=== PATIENT | male | born 1965 | race Caucasian/White ===

== ENCOUNTER 2017-03-22 11:02 | Emergency (ER) | payer BC ==
[~2017-03-22] VITALS: Ht 193 cm; Wt 118.0 kg
[~2017-03-22 11:02] MED LIST: CETI10 PO; EPIP0.3I IM; GLUCTAB OR; PRED20 PO; RANI300T PO
[2017-03-22 11:10] VITALS: BP 121/85; PULSE 118; RESP 17; O2SAT 98
[2017-03-22 11:16] VITALS: BP 121/85; TEMP 98.4
[2017-03-22] MEDS ORDERED: SODIUM CHLOR 0.9% 1000 ML INJ 1,000 ML IV SCH (11:18)
[2017-03-22] MEDS ORDERED: SODIUM CHLORIDE 0.9% FLUSH 10 ML FLUSH IV FLUSH PRN (11:30)
--- NOTE | 2017-03-22 11:30 | PD ---
HPI Chief Complaint: GI Complaint Time Seen by Provider: 11:20 Travel History International Travel<30 days: No Contact w/Intl Traveler<30days: No History of Present Illness HPI 51-year-old male with history of DM, HTN, tachycardia presents to the ED for evaluation less than 24 hour history of sudden onset nausea and vomiting. Patient states he ate the same dinner as his and kids. He states around 11 PM he began to have multiple episodes of watery diarrhea and nonbloody, nonbilious vomiting. He endorses diaphoreses and abdominal cramping, relieved with defecation. He estimates 10-11 episodes of vomiting and diarrhea. He states that he took 2 doses of Imodium today, last episode of diarrhea approximately 10 AM. On presentation the patient denies fever, chills, cold or flu symptoms, headache, chest pain, abdominal pain, dysuria, back pain, weakness of the extremities. He endorses chronic dry cough which he attributes to lisinopril. EMS administered 4 mg of Zofran and 500 mL of normal saline en route. Patient reports improvement of his symptoms on arrival. He states that he is [id number]-dpirztgsg diabetic and follows with Dr. Markham. He was just referred to a stunt man for his tachycardia, has never had a cardiac evaluation, currently taking metoprolol. PFSH Past Medical History Diabetes: Yes Diminished Hearing: No Past Surgical History Abdominal Surgery: Yes (HERNIA REPAIR) Appendectomy: Yes Cholecystectomy: Yes Other Surgery: Yes (GALLBLADDER) Social History Alcohol Use: Yes (OCC BEER) Tobacco Use: No (SMOKELESS) Substance Use: No Allergies-Medications (Allergen,Severity, Reaction): Coded Allergies: No Known Allergies (Unverified , 05/28/13) Reported Meds & Prescriptions Reported Meds & Active Scripts Active Zofran Odt (Ondansetron Odt) 4 Mg Tab 4 Mg SL Q8HR PRN Zantac (Ranitidine HCl) 300 Mg Tab 300 Mg PO HS Zyrtec 10 Mg Tab (Cetirizine HCl) 10 Mg Tab 10 Mg PO DAILY Epipen (Epinephrine HCl) 0.3 Mg Inj 0.3 Mg IM DIRECTED GIVE IM IN THIGH, MAY REPEAT IF NEEDED Deltasone (Prednisone) 20 Mg Tab 1 Tab PO BID Reported Glucophage XR 24 HR (Metformin HCl) 500 Mg Tab 500 Mg OR BID Review of Systems Except as stated in HPI: all other systems reviewed are Neg Physical Exam Narrative GENERAL: Well-nourished, well-developed nontoxic appearing white male in no acute distress. SKIN: Focused skin assessment warm/dry. Well-healed scar on the right anterior tibia. No signs of infection. HEAD: Normocephalic. EYES: No scleral icterus. No injection or drainage. NECK: Supple, trachea midline. No JVD or lymphadenopathy. CARDIOVASCULAR: Regular rate and rhythm without murmurs, gallops, or rubs. Tachycardic. RESPIRATORY: Breath sounds clear and equal bilaterally. No accessory muscle use. GASTROINTESTINAL: Abdomen soft, non-tender, nondistended. No palpable masses. Active bowel sounds. MUSCULOSKELETAL: No cyanosis, or edema. The patient is ambulatory and moves extremities spontaneously. BACK: Nontender without obvious deformity. No CVA tenderness. Data Data Last Documented VS Vital Signs Date Time Temp Pulse Resp B/P Pulse Ox O2 Delivery O2 Flow Rate FiO2 03/22/17 11:16 98.4 121/85 03/22/17 11:10 118 17 98 Room Air Orders Complete Blood Count With Diff (03/22/17 11:18) Comprehensive Metabolic Panel (03/22/17 11:18) Lipase (03/22/17 11:18) Lactic Acid (03/22/17 11:18) Urinalysis - C+S If Indicated (03/22/17 11:18) Iv Access Insert/Monitor (03/22/17 11:18) Ecg Monitoring (03/22/17 11:18) Oximetry (03/22/17 11:18) Sodium Chlor 0.9% 1000 Ml Inj (Ns 1000 M (03/22/17 11:18) Sodium Chloride 0.9% Flush (Ns Flush) (03/22/17 11:30) Electrocardiogram (03/22/17 11:18) Labs Laboratory Tests Test 03/22/17 03/22/17 11:30 12:20 White Blood Count 11.0 TH/MM3 Red Blood Count 5.48 MIL/MM3 Hemoglobin 16.6 GM/DL Hematocrit 48.3 % Mean Corpuscular Volume 88.2 FL Mean Corpuscular Hemoglobin 30.2 PG Mean Corpuscular Hemoglobin 34.3 % Concent Red Cell Distribution Width 12.8 % Platelet Count 260 TH/MM3 Mean Platelet Volume 10.4 FL Neutrophils (%) (Auto) 88.8 % Lymphocytes (%) (Auto) 5.3 % Monocytes (%) (Auto) 5.1 % Eosinophils (%) (Auto) 0.7 % Basophils (%) (Auto) 0.1 % Neutrophils # (Auto) 9.8 TH/MM3 Lymphocytes # (Auto) 0.6 TH/MM3 Monocytes # (Auto) 0.6 TH/MM3 Eosinophils # (Auto) 0.1 TH/MM3 Basophils # (Auto) 0.0 TH/MM3 CBC Comment DIFF FINAL Differential Comment Sodium Level 134 MEQ/L Potassium Level 4.7 MEQ/L Chloride Level 103 MEQ/L Carbon Dioxide Level 23.5 MEQ/L Anion Gap 8 MEQ/L Blood Urea Nitrogen 17 MG/DL Creatinine 1.26 MG/DL Estimat Glomerular Filtration 61 ML/MIN Rate Random Glucose 345 MG/DL Lactic Acid Level 1.0 mmol/L Calcium Level 8.8 MG/DL Total Bilirubin 0.8 MG/DL Aspartate Amino Transf 14 U/L (AST/SGOT) Alanine Aminotransferase 35 U/L (ALT/SGPT) Alkaline Phosphatase 67 U/L Total Protein 7.2 GM/DL Albumin 3.5 GM/DL Lipase 89 U/L Urine Color YELLOW Urine Turbidity CLEAR Urine pH 5.0 Urine Specific [place] 1.031 Urine Protein TRACE mg/dL Urine Glucose (UA) 1000 mg/dL Urine Ketones 10 mg/dL Urine Occult Blood NEG Urine Nitrite NEG Urine Bilirubin NEG Urine Urobilinogen LESS THAN 2.0 MG/DL Urine Leukocyte Esterase NEG Urine RBC LESS THAN 1 /hpf Urine WBC 2 /hpf Urine Hyaline Casts 7 /lpf Urine Mucus FEW /lpf Microscopic Urinalysis Comment CULT NOT INDICATED MDM Medical Decision Making Medical Screen Exam Complete: Yes Emergency Medical Condition: Yes Interpretation(s) EKG: rate 109, sinus rhythm. MS interval 135, QRS 93, QTC 400 ms. Normal axis. No ST elevations or depressions. Reviewed by Dr. Arthur. Differential Diagnosis Gastroenteritis versus pancreatitis versus hyperglycemia versus viral syndrome versus other Narrative Course 51-year-old male with history of DM, HTN, tachycardia presents to the ED for evaluation less than 24 hour history of sudden onset nausea and vomiting. Patient states he ate the same dinner as his and kids. He states around 11 PM he began to have multiple episodes of watery diarrhea and nonbloody, nonbilious vomiting. He endorses diaphoreses and abdominal cramping, relieved with defecation. He estimates 10-11 episodes of vomiting and diarrhea. He states that he took 2 doses of Imodium today, last episode of diarrhea approximately 10 AM. On presentation the patient denies fever, chills, cold or flu symptoms, headache, chest pain, abdominal pain, dysuria, back pain, weakness of the extremities. EMS administered 4 mg of Zofran and 500 mL of normal saline en route. Patient reports improvement of his symptoms on arrival. PCP Dr. Markham. He was just referred to a stunt man for his tachycardia, has never had a cardiac evaluation, currently taking metoprolol. Vitals reviewed. HR 120 on arrival. Physical exam reveals a nontoxic appearing white male in no acute distress. Abdominal exam is reassuring. Patient endorses SxH of cholecystectomy and appendectomy. She was placed on continuous monitoring. IV was established. CBC: WBC 11.0, HGB 16.6 CMP: unremarkable. Glucose: 345 Lipase: 89 Lactic: 1.0 UA: No culture indicated Tachycardia improved on recheck. This is gastroenteritis. Patient was provided a few doses of Zofran. He is instructed to hydrate, eat a bland diet for the next few days, gradually reintroduce new foods, monitor his blood sugars and report to his doctor at follow-up, return to the ED for worsening symptoms. He indicated understanding of instructions and is agreeable with the care plan. The patient is stable and discharged home. Diagnosis Primary Impression: Gastroenteritis Referrals: Fortunato Markham DO Patient Instructions: Diet for Stomach Ulcers and Gastritis (ED), Gastroenteritis (ED), General Instructions Additional Instructions: Rest, hydrate. Sports drinks, water, clear broth are all appropriate to rehydrate. Eat a clear liquid diet and gradually reintroduce foods. Considered a BRAT diet for the next few days. Take Zofran as needed for further episodes of nausea or vomiting. Monitor and note your blood sugars for your next doctors appointment. Resume at home prescription medications. Follow-up with Dr. Markham as discussed. Return to the ED for any urgent or emergent medical condition. Med/Other Pt SpecificInfo: Prescription(s) given Scripts Ondansetron Odt (Zofran Odt)4 Mg Tab4 Mg SL Q8HR PRN (Nausea/Vomiting) #6 TAB Ref 0 Prov:Arthur,[place] Z. MD 03/22/17 Disposition: 01 DISCHARGE HOME Condition: Stable Yary Jarrett Mar 22, 2017 11:30
[2017-03-22 12:07] LABS: AUTOMATED NEUTROPHIL # 9.8 TH/MM3 (1.8-7.7); BASOPHIL % 0.1 % (0.0-2.0); EOSINOPHIL # 0.1 TH/MM3 (0-0.4); EOSINOPHIL % 0.7 % (0.0-4.0); HEMATOCRIT 48.3 % (39.0-51.0); HEMO FLAGS DIFF FINAL; LYMPH % 5.3 % (9.0-44.0); LYMPHOCYTE # 0.6 TH/MM3 (1.0-4.8); MEAN CELL VOLUME 88.2 FL (80.0-100.0); MEAN CORPUSCULAR HEMOGLOBIN 30.2 PG (27.0-34.0); MEAN CORPUSCULAR HGB CONC 34.3 % (32.0-36.0); MONO % 5.1 % (0.0-8.0); NEUT % 88.8 % (16.0-70.0); PLATELET COUNT 260 TH/MM3 (150-450); RED BLOOD COUNT 5.48 MIL/MM3 (4.50-5.90); RED CELL DISTRIBUTION WIDTH 12.8 % (11.6-17.2)
[2017-03-22 12:22] LABS: ALT (GPT) 35 U/L (12-78); ANION GAP 8 MEQ/L (5-15); AST (GOT) 14 U/L (15-37); BICARBONATE 23.5 MEQ/L (21.0-32.0); BLOOD UREA NITROGEN 17 MG/DL (7-18); CHLORIDE 103 MEQ/L (98-107); GLOMERULAR FILTRATION RATE 61 ML/MIN (>89); POTASSIUM 4.7 MEQ/L (3.5-5.1); SODIUM (NA) 134 MEQ/L (136-145)
[2017-03-22 12:24] LABS: ALKALINE PHOSPHATASE 67 U/L (45-117); TOTAL BILIRUBIN ADULT 0.8 MG/DL (0.2-1.0)
[2017-03-22 12:50] LABS: BLOOD, URINE NEG (NEG); COMMENT (UR) CULT NOT INDICATED; CULTURE IF INDICATED CULT NOT INDICATED; GLUCOSE,URINE 1000 mg/dL (NEG); HYALINE CAST, URINE 7 /lpf (RARE); KETONE, URINE 10 mg/dL (NEG); MUCUS URINE FEW /lpf (OCC); NITRITE,URINE NEG (NEG); URINE COLOR YELLOW (YELLW/STRAW)
[2017-03-22] MEDS ORDERED: ZOFR4TAB3 SL (13:07)
[2017-03-22 13:39] VITALS: BP 113/78
--- NOTE | 2017-03-23 19:31 | EKG ---
Date Performed: 03/22/2017 Time Performed: 11:46:02 PTAGE: 51 years EKG: SINUS TACHYCARDIA ABNORMAL RHYTHM ECG NO PREVIOUS TRACING DOCTOR: Brigitte Quiñonez Interpretating Date/Time 03/23/2017 19:30:52
== END 2017-03-22 13:35 | disposition home or self-care (01) ==
LOC: NEPC 11:02
DX: K52.9 Noninfective gastroenteritis and colitis, unspecified (principal); R00.0 Tachycardia, unspecified
CPT/HCPCS: 80053; 81001; 83605; 83690; 85025; 93005; 96360; 99284; J7030

== ENCOUNTER 2018-03-08 13:57 | Emergency (ER) | payer BC, OTHER ==
[~2018-03-08] VITALS: Ht 177.8 cm; Wt 117.0 kg
[~2018-03-08 13:57] MED LIST changes: +ZOFR4TAB3 SL
[2018-03-08 14:00] VITALS: BP 137/87; PULSE 121; RESP 21; TEMP 97.6
[2018-03-08] MEDS ORDERED: SODIUM CHLOR 0.9% 1000 ML INJ 1,000 ML IV ONE ×2 (14:03→15:15)
[2018-03-08] MEDS ORDERED: SODIUM CHLORIDE 0.9% FLUSH 10 ML FLUSH IVF PRN (14:15)
--- NOTE | 2018-03-08 14:17 | PD ---
HPI Chief Complaint: General Weakness Time Seen by Provider: 14:03 Travel History International Travel<30 days: No Contact w/Intl Traveler<30days: No Traveled to known affect area: No History of Present Illness HPI The patient is a 52-year-old male who presents to the emergency department via EMS for nausea, vomiting, lightheadedness, and dizziness. The patient states he became symptomatic earlier today, was lying on the couch when he suddenly became nauseated. The patient went to the bathroom and had several episodes of vomiting. The patient then went back to the couch and lay down, however, have multiple episodes of repetitive nausea and vomiting. The patient then became lightheaded and dizzy. The patient denies any diarrhea. He did complain of some mild chest tightness, but denies any actual chest pain. The patient does have a history of similar symptoms 1 year ago and was diagnosed with SVT. Patient denies any known history of coronary artery disease. The patient does state when he awakened initially he was diaphoretic and covered in sweat. He denies any fever. The patient does have a history of diabetes, the patient's blood sugar is 118 prior to arrival per EMS. The patient did recently start Victoza and they have been increasing his medication dose, he thinks his symptoms may be secondary to the new medication. The patient's primary physician is Dr. Fortunato Markham. EMS states and initially arrived the patient's blood pressure was in the 80s sitting upright, improved to 100 lying supine. They did start IV fluids prior to arrival. The patient does state his symptoms have somewhat improved and his cognitive state is much clear after the IV fluids. PFSH Past Medical History Heart Rhythm Problems: Yes Cardiovascular Problems: Yes Diabetes: Yes Patient Takes Glucophage: No Diminished Hearing: No Past Surgical History Abdominal Surgery: Yes (HERNIA REPAIR) Appendectomy: Yes Cholecystectomy: Yes Other Surgery: Yes (GALLBLADDER) Social History Alcohol Use: No Tobacco Use: No (SMOKELESS) Substance Use: No Allergies-Medications (Allergen,Severity, Reaction): Coded Allergies: No Known Allergies (Unverified , 05/28/13) Reported Meds & Prescriptions Reported Meds & Active Scripts Active Reported Victoza Inj (Liraglutide Inj) 18 Mg/3 Ml Pen 0.6 Mg SQ DAILY Gabapentin 100 Mg Cap 100 Mg PO TID Metoprolol Tartrate 25 Mg Tab 25 Mg PO DAILY Simvastatin 10 Mg Tab 10 Mg PO DAILY Glipizide 10 Mg Tab 10 Mg PO DAILY Take 30 minutes before a meal Metformin (Metformin HCl) 1,000 Mg Tab 1,000 Mg PO DAILY With a meal Review of Systems Except as stated in HPI: all other systems reviewed are Neg General / Constitutional: No: Fever HENT: Positive: Lightheadedness, No: Headaches Cardiovascular: Positive: Chest Pain or Discomfort (Tightness), Tachycardia ( History of SVT), No: Palpitations, Irregular Rhythm Respiratory: No: Shortness of Breath Gastrointestinal: Positive: Nausea, Vomiting, No: Diarrhea, Abdominal Pain Musculoskeletal: Positive: Weakness Neurologic: Positive: Weakness, Dizziness Physical Exam Narrative GENERAL: Awake, alert, pleasant 52-year-old male who appears his stated age and is in no acute respiratory distress. SKIN: Focused skin assessment warm/dry. No diaphoresis initially noted. HEAD: Atraumatic. Normocephalic. EYES: Pupils equal and round. No scleral icterus. No injection or drainage. ENT: No nasal bleeding or discharge. Mucous membranes pink and moist. NECK: Trachea midline. No JVD. CARDIOVASCULAR: Regular, tachycardic with a heart rate of 120. RESPIRATORY: No accessory muscle use. Clear to auscultation. Breath sounds equal bilaterally. GASTROINTESTINAL: Abdomen soft, minimal epigastric tenderness. No guarding or rigidity. MUSCULOSKELETAL: No obvious deformities. No clubbing. No cyanosis. No edema. NEUROLOGICAL: Awake and alert. No obvious cranial nerve deficits. Motor grossly within normal limits. Normal speech. Nonfocal. Oriented 4. PSYCHIATRIC: Appropriate mood and affect; insight and judgment normal. Data Data Last Documented VS Vital Signs Date Time Temp Pulse Resp B/P (MAP) Pulse Ox O2 Delivery O2 Flow Rate FiO2 03/08/18 14:04 99 Nasal Cannula 2.00 03/08/18 14:00 97.6 121 21 137/87 (104) Orders Orders Complete Blood Count With Diff (03/08/18 14:03) Comprehensive Metabolic Panel (03/08/18 14:03) Magnesium (Mg) (03/08/18 14:03) Ckmb (Isoenzyme) Profile (03/08/18 14:03) Troponin I (03/08/18 14:03) Act Partial Throm Time (Ptt) (03/08/18 14:03) Prothrombin Time / Inr (Pt) (03/08/18 14:03) Chest, Single Ap (03/08/18 14:03) Ecg Monitoring (03/08/18 14:03) Iv Access Insert/Monitor (03/08/18 14:03) Oximetry (03/08/18 14:03) Sodium Chloride 0.9% Flush (Ns Flush) (03/08/18 14:15) Sodium Chlor 0.9% 1000 Ml Inj (Ns 1000 M (03/08/18 14:03) Orthostatic Vital Signs (03/08/18 14:03) Lipase (03/08/18 14:03) CKMB (03/08/18 14:10) CKMB% (03/08/18 14:10) Sodium Chlor 0.9% 1000 Ml Inj (Ns 1000 M (03/08/18 15:15) Basic Metabolic Panel (Bmp) (03/08/18 16:31) Electrocardiogram (03/08/18 14:01) Labs Laboratory Tests Test 03/08/18 14:10 03/08/18 16:45 White Blood Count 15.9 TH/MM3 Red Blood Count 5.53 MIL/MM3 Hemoglobin 16.6 GM/DL Hematocrit 47.9 % Mean Corpuscular Volume 86.6 FL Mean Corpuscular Hemoglobin 29.9 PG Mean Corpuscular Hemoglobin Concent 34.6 % Red Cell Distribution Width 13.2 % Platelet Count 279 TH/MM3 Mean Platelet Volume 9.1 FL Neutrophils (%) (Auto) 86.9 % Lymphocytes (%) (Auto) 5.8 % Monocytes (%) (Auto) 6.0 % Eosinophils (%) (Auto) 0.6 % Basophils (%) (Auto) 0.7 % Neutrophils # (Auto) 13.8 TH/MM3 Lymphocytes # (Auto) 0.9 TH/MM3 Monocytes # (Auto) 1.0 TH/MM3 Eosinophils # (Auto) 0.1 TH/MM3 Basophils # (Auto) 0.1 TH/MM3 CBC Comment AUTO DIFF Differential Comment AUTO DIFF CONFIRMED Platelet Estimate NORMAL Platelet Morphology Comment NORMAL Prothrombin Time 10.4 SEC Prothromb Time International Ratio 1.0 RATIO Activated Partial Thromboplast Time 22.6 SEC Blood Urea Nitrogen 11 MG/DL 11 MG/DL Creatinine 1.60 MG/DL 1.32 MG/DL Random Glucose 208 MG/DL 195 MG/DL Total Protein 8.1 GM/DL Albumin 4.1 GM/DL Calcium Level 9.3 MG/DL 8.1 MG/DL Magnesium Level 1.7 MG/DL Alkaline Phosphatase 73 U/L Aspartate Amino Transf (AST/SGOT) 21 U/L Alanine Aminotransferase (ALT/SGPT) 47 U/L Total Bilirubin 0.8 MG/DL Sodium Level 136 MEQ/L 141 MEQ/L Potassium Level 6.1 MEQ/L 4.5 MEQ/L Chloride Level 104 MEQ/L 109 MEQ/L Carbon Dioxide Level 24.3 MEQ/L 24.2 MEQ/L Anion Gap 8 MEQ/L 8 MEQ/L Estimat Glomerular Filtration Rate 46 ML/MIN 57 ML/MIN Total Creatine Kinase 179 U/L Creatine Kinase MB 4.0 NG/ML Troponin I LESS THAN 0.02 NG/ML Lipase 201 U/L MDM Medical Decision Making Medical Screen Exam Complete: Yes Emergency Medical Condition: Yes Medical Record Reviewed: Yes Interpretation(s) EKG reveals sinus tachycardia with a heart rate of 119. QT is long at 388 ms, however, is greater than one half of the RR interval. Last Impressions Chest X-Ray 03/08/18 [id number] Signed Impressions: Service Date/Time: Saturday, March 08, 2018 14:29 - CONCLUSION: No acute disease. Fortunato Soto MD Laboratory Tests Test 03/08/18 14:10 03/08/18 16:45 White Blood Count 15.9 TH/MM3 Red Blood Count 5.53 MIL/MM3 Hemoglobin 16.6 GM/DL Hematocrit 47.9 % Mean Corpuscular Volume 86.6 FL Mean Corpuscular Hemoglobin 29.9 PG Mean Corpuscular Hemoglobin Concent 34.6 % Red Cell Distribution Width 13.2 % Platelet Count 279 TH/MM3 Mean Platelet Volume 9.1 FL Neutrophils (%) (Auto) 86.9 % Lymphocytes (%) (Auto) 5.8 % Monocytes (%) (Auto) 6.0 % Eosinophils (%) (Auto) 0.6 % Basophils (%) (Auto) 0.7 % Neutrophils # (Auto) 13.8 TH/MM3 Lymphocytes # (Auto) 0.9 TH/MM3 Monocytes # (Auto) 1.0 TH/MM3 Eosinophils # (Auto) 0.1 TH/MM3 Basophils # (Auto) 0.1 TH/MM3 CBC Comment AUTO DIFF Differential Comment AUTO DIFF CONFIRMED Platelet Estimate NORMAL Platelet Morphology Comment NORMAL Prothrombin Time 10.4 SEC Prothromb Time International Ratio 1.0 RATIO Activated Partial Thromboplast Time 22.6 SEC Blood Urea Nitrogen 11 MG/DL 11 MG/DL Creatinine 1.60 MG/DL 1.32 MG/DL Random Glucose 208 MG/DL 195 MG/DL Total Protein 8.1 GM/DL Albumin 4.1 GM/DL Calcium Level 9.3 MG/DL 8.1 MG/DL Magnesium Level 1.7 MG/DL Alkaline Phosphatase 73 U/L Aspartate Amino Transf (AST/SGOT) 21 U/L Alanine Aminotransferase (ALT/SGPT) 47 U/L Total Bilirubin 0.8 MG/DL Sodium Level 136 MEQ/L 141 MEQ/L Potassium Level 6.1 MEQ/L 4.5 MEQ/L Chloride Level 104 MEQ/L 109 MEQ/L Carbon Dioxide Level 24.3 MEQ/L 24.2 MEQ/L Anion Gap 8 MEQ/L 8 MEQ/L Estimat Glomerular Filtration Rate 46 ML/MIN 57 ML/MIN Total Creatine Kinase 179 U/L Creatine Kinase MB 4.0 NG/ML Troponin I LESS THAN 0.02 NG/ML Lipase 201 U/L Differential Diagnosis Differential diagnosis includes arrhythmia, SVT, ventricular tachycardia, QT prolongation, electrolyte abnormality, presyncope, gastritis, gastroenteritis, vasovagal syncope, pancreatitis, dehydration. Narrative Course IV was established, labs are drawn and sent, and the patient was placed on cardiac telemetry monitoring and continuous pulse oximetry monitoring. EKG was ordered and interpreted. Orthostatic vital signs were ordered. The patient then had an episode of diarrhea in the emergency department. However, he does note intermittent chronic diarrhea that he attributes to his metformin. The patient's potassium is noted to be 6.1 with an elevated creatinine 1.6. I reviewed the EMR, previous creatinine was normal and previous potassium were normal. I reevaluated the patient at 3:20 PM. The patient states his symptoms have significantly improved. I had a discussion with the patient regarding 23 hour observation for IV fluids and reevaluation of potassium versus IV fluids and trial of ambulation in the emergency department. The patient states his symptoms have significantly improved and he would prefer to be discharged home. Therefore, the patient was administered a second liter of IV fluids and then was given a trial of ambulation. Repeat BMP reveals the patient's potassium is down to 4.5, creatinine has improved. Patient's symptoms have improved. The patient will be discharged home. Diagnosis Primary Impression: Nausea and vomiting Qualified Codes: R11.2 - Nausea with vomiting, unspecified Additional Impression: Hyperkalemia Patient Instructions: General Instructions Additional Instructions: Please provide the patient a copy of his lab results at discharge. Follow-up with your primary physician. Return if symptoms worsen or progress. Plenty of fluids to stay hydrated. Disposition: DISCHARGE HOME Condition: Stable Candelario Arthur MD Mar 08, 2018 14:17
[2018-03-08 14:27] LABS: AUTOMATED NEUTROPHIL # 13.8 TH/MM3 (1.8-7.7); BASOPHIL # 0.1 TH/MM3 (0-0.2); BASOPHIL % 0.7 % (0.0-2.0); EOSINOPHIL # 0.1 TH/MM3 (0-0.4); EOSINOPHIL % 0.6 % (0.0-4.0); HEMATOCRIT 47.9 % (39.0-51.0); HEMOGLOBIN 16.6 GM/DL (13.0-17.0); LYMPH % 5.8 % (9.0-44.0); LYMPHOCYTE # 0.9 TH/MM3 (1.0-4.8); MEAN CELL VOLUME 86.6 FL (80.0-100.0); MEAN CORPUSCULAR HEMOGLOBIN 29.9 PG (27.0-34.0); MEAN CORPUSCULAR HGB CONC 34.6 % (32.0-36.0); MEAN PLATELET VOLUME 9.1 FL (7.0-11.0); NEUT % 86.9 % (16.0-70.0); PLATELET COUNT 279 TH/MM3 (150-450); RED BLOOD COUNT 5.53 MIL/MM3 (4.50-5.90); RED CELL DISTRIBUTION WIDTH 13.2 % (11.6-17.2); WHITE BLOOD COUNT 15.9 TH/MM3 (4.0-11.0)
[2018-03-08 14:37] LABS: PROTHROMBIN TIME - PATIENT 10.4 SEC (9.8-11.6)
[2018-03-08 14:53] LABS: ALBUMIN 4.1 GM/DL (3.4-5.0); ALT (GPT) 47 U/L (12-78); AST (GOT) 21 U/L (15-37); BICARBONATE 24.3 MEQ/L (21.0-32.0); BLOOD UREA NITROGEN 11 MG/DL (7-18); CALCIUM 9.3 MG/DL (8.5-10.1); CHLORIDE 104 MEQ/L (98-107); GLOMERULAR FILTRATION RATE 46 ML/MIN (>89); GLUCOSE,RANDOM 208 MG/DL (74-106); MAGNESIUM 1.7 MG/DL (1.5-2.5); SODIUM (NA) 136 MEQ/L (136-145)
[2018-03-08 14:58] LABS: ALKALINE PHOSPHATASE 73 U/L (45-117); TOTAL BILIRUBIN ADULT 0.8 MG/DL (0.2-1.0); TOTAL PROTEIN 8.1 GM/DL (6.4-8.2); TROPONIN I LESS THAN 0.02 NG/ML (0.02-0.05)
[2018-03-08] MEDS ORDERED: METF1000 PO (15:03)
[2018-03-08] MEDS ORDERED: GABA100C4 PO (15:03)
[2018-03-08] MEDS ORDERED: GLIP10TA6 PO (15:03)
[2018-03-08] MEDS ORDERED: SIMV10TA PO (15:03)
[2018-03-08] MEDS ORDERED: METO25TA3 PO (15:03)
[2018-03-08] MEDS ORDERED: VICT18IN SQ (15:03)
--- NOTE | 2018-03-08 15:06 | RADRPT ---
EXAM DATE/TIME: 03/08/2018 14:29 [facility] COMPARISON: No previous studies available for comparison. INDICATIONS : Palpitations. Patient suddenly felt dizzy and vomited. MEDICAL HISTORY : None. SURGICAL HISTORY : None. ENCOUNTER: Initial ACUITY: 1 day PAIN SCORE: 0/10 LOCATION: Bilateral chest FINDINGS: A single view of the chest demonstrates the lungs to be symmetrically aerated without evidence of mas s, infiltrate or effusion. The cardiomediastinal contours are unremarkable. Osseous structures are intact. CONCLUSION: No acute disease. Fortunato Soto MD on March 08, 2018 at 15:04 Board Certified Radiologist. This report was verified electronically.
[2018-03-08 17:20] LABS: BICARBONATE 24.2 MEQ/L (21.0-32.0); CALCIUM 8.1 MG/DL (8.5-10.1); CREATININE 1.32 MG/DL (0.60-1.30)
--- NOTE | 2018-03-09 15:47 | EKG ---
Date Performed: 03/08/2018 Time Performed: 14:01:34 PTAGE: 52 years EKG: SINUS TACHYCARDIA ABNORMAL RHYTHM ECG Since PREVIOUS TRACING , no significant change noted PREVIOUS TRACIN03/22/2017 11.46 DOCTOR: Yasmin Estrada Interpretating Date/Time 03/09/2018 15:46:58
== END 2018-03-08 17:57 | disposition home or self-care (01) ==
LOC: NEPC 13:57
DX: R11.2 Nausea with vomiting, unspecified (principal); E87.5 Hyperkalemia; R42 Dizziness and giddiness; R07.89 Other chest pain; E11.9 Type 2 diabetes mellitus without complications; Z79.84 Long term (current) use of oral hypoglycemic drugs
CPT/HCPCS: 71045; 80053; 82550; 82552; 83690; 83735; 84484; 85025; 85610; 85730; 93005; 96360; 96361; 99284; J7030; 80048